=== PATIENT | male | born 1960 | race Caucasian/White ===

== ENCOUNTER 2021-08-26 07:49 | Day surgery (SDC) | payer OTHER ==
[~2021-08-26 07:49] MED LIST: ALPRAZolam 0.25 MG TAB PO PRN; ALPRAZolam 0.5 MG TAB PO PRN; ASPIRIN 325 MG TAB PO STA; ATORVASTATIN 80 MG TAB PO STA; HEPARIN SODIUM,PORCINE 10,000 UNIT in SODIUM CHLORIDE 0.9% 1,000 ML IRRIGATION PRN; HEPARIN SODIUM,PORCINE 2,500 UNIT in SODIUM CHLORIDE 0.9% 250 ML IRRIGATION PRN; NITROGLYCERIN SL TABS 0.4 MG TAB SUBLINGUAL PRN; SODIUM CHLORIDE 0.9% 1,000 ML in EMPTY BAG 1 BAG IV SCH
[2021-08-26 08:23] VITALS: TEMP 98
[2021-08-26 09:24] LABS: Basophils % (A) 0 %; Eosinophils # (A) 0.3 k/uL (0-0.7); Eosinophils % (A) 3 %; HCT 52.3 % (39.0-53.0); HGB 17.3 gm/dL (13.0-17.5); Lymphocytes # (A) 1.8 k/uL (1.0-4.8); Lymphocytes % (A) 16 %; MCHC 33.1 g/dL (31.0-37.0); MCV 96.8 fL (80.0-100.0); Mean Platelet Volume 7.3; Monocytes % (A) 9 %; Neutrophils # (A) 8.1 k/uL (1.3-7.7); Neutrophils % (A) 70 %; Platelet Count 278 k/uL (150-450); WBC 11.4 k/uL (3.8-10.6)
[2021-08-26 09:27] LABS: African American GFR (CKD) >90 (>60 ml/min/1.73 sqM); Anion Gap 10 mmol/L; Blood Urea Nitrogen 19 mg/dL (9-20); Calcium 9.4 mg/dL (8.4-10.2); Carbon Dioxide 20 mmol/L (22-30); Chloride 110 mmol/L (98-107); Glucose 122 mg/dL (74-99); Non-African American GFR(CKD) >90 (>60 ml/min/1.73 sqM); Sodium 140 mmol/L (137-145)
[2021-08-26 09:48] LABS: Potassium 4.8 mmol/L (3.5-5.1)
--- NOTE | 2021-08-26 11:46 | P.CRDCN ---
History of Present Illness History of present illness: This is Dr. Irwin dictating a consult on this patient The patient was interviewed and examined IMPRESSION / ASSESSMENT: Recurrent nonsustained ventricular tachycardia associated with dizziness and lightheadedness Multiple different morphologies No documentation of sustained VT and no loss of consciousness so far These episodes of palpitations have been occurring for a long time according to the patient Normal LV systolic function without any segmental wall motion abnormalities on 2-D echo Awaiting coronary angiography PLAN: Coronary Madonna today Maximize beta blockers Amiodarone should be only a temporary treatment Based upon the findings out recommend an EP study but he must stop amiodarone prior to that LifeVest may be considered in the interim If coronary angiography is normal, I would recommend a cardiac MRI Complete abstinence from alcohol Complete abstinence from nicotine products Complete abstinence from marijuana And a very detailed discussion with the patient and his Explained to them the d-dimer the first few beats of an impending cardiac arrest or ventricular fibrillation if they were to become sustained His ejection fraction is normal We will evaluate his coronary arteries but in my opinion he needs to stop alcohol consumption as well as marijuana and smoking Maximize beta blockers I explained the risks of continuing alcohol smoking and marijuana very clearly to the patient and his HPI For quite some time the patient has been experiencing dizzy spells However his noted that he was sitting one day any became extremely dizzy blurred vision and he looked strange The patient states that this was a severe spell but he's had these episodes before but they've been short in my He is happening for quite some time He denies any chest discomfort no loss of consciousness no angina like pain no undue shortness of breath He has good exercise capacity and can walk a mile comfortably He can climb 2 flights of stairs comfortably He does not have any family history of premature or sudden He does not have any family history with early heart disease before the age of 40 or 50 He denies any diabetes He does have hypertension He smokes tobacco He smokes marijuana He drinks heavily, alcohol ROS: No fever chills or rigors, no cough, phlegm or expectoration, no nausea, vomiting or diarrhea, no hematuria, dysuria, no musculoskeletal complaints, no strokes or seizures, no skin lesions. EXAMINATION: 90F, pulse rate in the 60s afebrile normal respirations Blood pressure 153/91 mmHg Sounds are clear no rhonchi no crackles Heart sounds S1 and S2 are normal Abdomen soft No JVD REVIEW OF LABS, ECG & MEDICAL DATA White count 11.4, hemoglobin 17, sodium 140 potassium 4.8 BUN 19 and creatinine 0.83 Past Medical History Past Medical History: Hypertension Additional Past Medical History / Comment(s): RHEUMATIC FEVER @ 11 YR. HEART MURMUR. History of Any Multi-Drug Resistant Organisms: None Reported Past Surgical History: No Surgical Hx Reported Past Anesthesia/Blood Transfusion Reactions: No Reported Reaction Additional Past Anesthesia/Blood Transfusion Reaction / Comment(s): NEVER HAS HAD ANESTHESIA Past Psychological History: No Psychological Hx Reported Smoking Status: Never smoker Past Alcohol Use History: Daily Past Drug Use History: Marijuana Additional Drug Use History / Comment(s): DAILY SMOKES Medications and Allergies Home Medications Medication Instructions Recorded Confirmed Type Cholecalciferol [Vitamin D3 (25 1 tab PO DAILY 08/24/21 08/26/21 History Mcg = 1000 Iu)] Amiodarone [Cordarone] 200 mg PO DAILY 08/26/21 08/26/21 History Aspirin 81 mg PO DAILY 08/26/21 08/26/21 History Metoprolol Succinate (ER) [Toprol 25 mg PO DAILY 08/26/21 08/26/21 History Xl] Allergies Allergy/AdvReac Type Severity Reaction Status Date / Time No Known Allergies Allergy Verified 08/26/21 08:04 Physical Exam Vitals: Vital Signs Temp Pulse Resp BP BP Pulse Ox 08/26/21 08:22 98 F 67 18 153/91 155/95 97 Intake and Output 08/25/21 08/26/21 08/26/21 22:59 06:59 14:59 Intake Total 250 Balance 250 Intake: IV 250 Other: Weight 71.4 kg Results 08/26/21 08:14 08/26/21 08:14 CBC 08/26/21 Range/Units 08:14 WBC 11.4 H (3.8-10.6) k/uL RBC 5.40 (4.30-5.90) m/uL Hgb 17.3 (13.0-17.5) gm/dL Hct 52.3 (39.0-53.0) % Plt Count 278 (150-450) k/uL Comprehensive Metabolic Panel 08/26/21 Range/Units 08:14 Sodium 140 (137-145) mmol/L Potassium 4.8 (3.5-5.1) mmol/L Chloride 110 H (98-107) mmol/L Carbon Dioxide 20 L (22-30) mmol/L BUN 19 (9-20) mg/dL Creatinine 0.83 (0.66-1.25) mg/dL Glucose 122 H (74-99) mg/dL Calcium 9.4 (8.4-10.2) mg/dL Current Medications Generic Name Dose Route Start Last Admin Trade Name Freq PRN Reason Stop Dose Admin Alprazolam 0.25 mg 08/26/21 07:26 Alprazolam 0.25 Mg Tab PO 09/25/21 07:27 Q6HR PRN Mild Anxiety Alprazolam 0.5 mg 08/26/21 07:26 Alprazolam 0.5 Mg Tab PO 09/25/21 07:27 Q6HR PRN Moderate Anxiety Sodium Chloride 1,000 ml/ IV 1,000 mls @ 71.668 mls/hr 08/26/21 07:26 08/26/21 08:23 Solution IV 09/25/21 07:27 250 mls .[id number] TRENA Administration 1 ML/KG/HR Heparin Sodium (Porcine) 10, 1,001 mls @ 999 mls/hr 08/26/21 07:26 000 unit/ Sodium Chloride IRRIGATION 08/26/21 20:00 ONCE PRN INTRA-OP Heparin Sodium (Porcine) 2,500 250.5 mls @ 250 mls/hr 08/26/21 07:26 unit/ Sodium Chloride IRRIGATION 08/26/21 20:00 ONCE PRN INTRA-OP Nitroglycerin 0.4 mg 08/26/21 07:26 Nitroglycerin Sl Tabs 0.4 Mg Tab SUBLINGUAL 09/25/21 07:27 Q5M PRN Chest Pain Intake and Output 08/25/21 08/26/21 08/26/21 22:59 06:59 14:59 Intake Total 250 Balance 250 Intake: IV 250 Other: Weight 71.4 kg Patient Weight 08/27/21 06:59 Weight 71.4 kg 08/26/21 08:14 08/26/21 08:14
[2021-08-26] MEDS ORDERED: VERAPAMIL 2.5 MG/ML 2 ML AMP ONE (12:30)
[2021-08-26] MEDS ORDERED: LIDOCAINE 1% INJ 10MG/ML (20 ML MDV) ONE (12:30)
[2021-08-26] MEDS ORDERED: HEPARIN SODIUM 1,000 UN/ML (10ML VL) ONE (12:30)
[2021-08-26] MEDS ORDERED: MIDAZOLAM 2 MG/2 ML VIAL IV ONE (12:39)
[2021-08-26] MEDS ORDERED: LIDOCAINE 1% INJ 10MG/ML (20 ML MDV) SQ ONE (12:40)
[2021-08-26] MEDS: VERAPAMIL SYRINGE (5 MG/10 ML) INTRAARTER ONE ×2 (12:41→13:01)
[2021-08-26] MEDS ORDERED: HEPARIN SODIUM 1,000 UN/ML (10ML VL) IV ONE (12:43)
[2021-08-26] MEDS ORDERED: IOPAMIDOL-370 100ML BTL INJ ONE (12:56)
--- NOTE | 2021-08-26 13:00 | ECHOF ---
Referral Reason:valves right ventricle MEASUREMENTS -------- HEIGHT: 172.7 cm WEIGHT: 71.7 kg BP: IVSd: 1.2 cm (0.6 - 1.1) LVIDd: 4.9 cm (3.9 - 5.3) LVPWd: 1.2 cm (0.6 - 1.1) EDV(Teich): 115 ml IVSs: 1.3 cm LVIDs: 3.8 cm LVPWs: 1.6 cm %IVS Thck: 7 % ESV(Teich): 62 ml EF(Teich): 46 % %FS: 23 % SV(Teich): 53 ml LALs A4C: 5.7 cm LAAs A4C: 20.5 cm LAESV A-L A4C: 63 ml LAESV MOD A4C: 62 ml LALs A2C: 5.6 cm LAAs A2C: 21.2 cm LAESV A-L A2C: 67 ml LAESV MOD A2C: 64 ml LAESV(A-L): 65 ml LAESV Index (A-L): 35.32 ml/m Ao Diam: 4.0 cm (2.0 - 3.7) AV Cusp: 1.3 cm (1.5 - 2.6) EPSS: 0.7 cm MV E Charles: 0.67 m/s MV DecT: 159 ms MV Dec [place]: 4.3 m/s MV A Charles: 0.82 m/s MV E/A Ratio: 0.82 MV PHT: 46 ms MV EF SLOPE: 53.18 mm/s (70 - 150) MV EXCURSION: 17.70 mm (> 18.000) FINDINGS -------- Sinus rhythm. This was a techncally difficult study with suboptimal views, , Lumason utilized for enhancement of im ages. The left ventricular size is normal. There is borderline concentric left ventricular hypertrophy. Overall left ventricular systolic function is low-normal with, an EF between 50 - 55 %. The right ventricle is normal in size. LA is moderately dilated 34-39 ml/m2 The right atrial size is normal. 5.0mg OF Lumason UTLIZED: 2 OR MORE WALL SEGMENTS NOT VISUALIZED. There is mild aortic regurgitation. Mild mitral regurgitation is present. Mild tricuspid regurgitation present. Right ventricular systolic pressure is normal at < 35 mmHg. There is no pulmonic regurgitation present. 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 There is no pericardial effusion. CONCLUSIONS -------- 1. The left ventricular size is normal. 2. There is borderline concentric left ventricular hypertrophy. 3. Overall left ventricular systolic function is low-normal with, an EF between 50 - 55 %. 4. The right ventricle is normal in size. 5. LA is moderately dilated 34-39 ml/m2 6. The right atrial size is normal. 7. 5.0mg OF Lumason UTLIZED: 2 OR MORE WALL SEGMENTS NOT VISUALIZED. 8. There is mild aortic regurgitation. 9. Mild mitral regurgitation is present. 10. Mild tricuspid regurgitation present. 11. 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 12. There is no pericardial effusion. [employer]ICE PRESIDENT [employer] (EX ): Olena Ross RDCS
[2021-08-26] MEDS ORDERED: SODIUM CHLORIDE 0.9% 1,000 ML IV SCH (13:15)
[2021-08-26 13:36] VITALS: RESP 18
--- NOTE | 2021-08-26 13:57 | CC ---
CARDIAC CATHETERIZATION REPORT DATE OF SERVICE: 08/26/2021 PROCEDURE: Left heart catheterization, coronary angiography and left ventriculography. PERFORMED BY: Dr. Tigist Nugent. Moderate conscious sedation time was 23 minutes. Patient was administered Versed. Oxygen saturation, hemodynamics and EKG were monitored closely. CLINICAL INFORMATION: Mr. Lacho Stephenson is a 60-year-old gentleman with a history of alcoholism and smoking who also had a history of syncope and had a cardiac workup that included an event monitor which revealed runs of nonsustained VT. He had a negative stress echo, but because of symptomatic ventricular tachycardia, he was advised EP evaluation and coronary angiography. Risks, benefits, options and rationale were explained and the patient was brought in for the procedure electively. PROCEDURE NOTE: Under local anesthesia and strict aseptic precautions, a 6-Japanese introducer was placed in the right radial artery. Using a JL3.5 and JR4 catheters I performed coronary angiography, and a pigtail catheter was used to check LV pressures. An LV-gram was performed in 30-degree SANTACRUZ projection. Patient tolerated procedure well without complications. The catheters and sheath were taken out and TR band applied as per protocol. Saturation in the fingers of the right hand was 94%. There were no complications. Results were discussed with the patient and and he will be discharged later on today and we will see him in the office on Tuesday. CARDIAC CATHETERIZATION FINDINGS: The left ventricular end-diastolic pressure was about 13 mmHg. There was no gradient across aortic valve. CORONARY ANGIOGRAPHY FINDINGS: RIGHT CORONARY ARTERY: Technically a dominant vessel, distally bifurcates into a larger PDA, a small PLV. No significant disease; only minor irregularities are noted in the right coronary artery. PDA is a larger vessel, has minor irregularities, and PLV is smaller branch, but no significant disease. LEFT MAIN CORONARY ARTERY: This is a long vessel free of significant disease that trifurcates into a good-sized LAD and a good-sized circumflex and a small ramus intermedius. No significant disease in the left main. LEFT ANTERIOR DESCENDING CORONARY ARTERY: Good-caliber vessel extends along the anterior wall, gives off septal and diagonal branches, runs all the way to the apex. No significant disease. Has minor irregularities. LEFT POSTERIOR CIRCUMFLEX CORONARY ARTERY: Nondominant vessel, good caliber, good distribution. Sizable myocardium is supplied by it. No significant disease; only minor irregularities noted. RAMUS INTERMEDIUS: Small-caliber, small-distribution vessel has minor irregularities. No significant disease. LEFT VENTRICULOGRAM: This was performed in 30-degree S[place]ACRUZ projection and revealed left ventricle is of normal size with good systolic function, ejection fraction 55%. No mitral regurgitation. FINAL IMPRESSION: This patient has a right-dominant system, normal filling pressures, no gradient. Normal ejection fraction of 55% without mitral regurgitation. He has a right-dominant system. No significant obstructive CAD. RECOMMENDATIONS: Findings were discussed with the patient and . He will be discharged today and we will do a cardiac to further work up for ventricular tachycardia and also EP evaluation. Patient will be discharged today and we will see him on Tuesday. MMODL / IJN: [id number] /
[2021-08-26 16:50] VITALS: BP 140/84; PULSE 52
== END 2021-08-26 16:56 | disposition home or self-care (01) ==
LOC: CATHCVL 07:49
PROVIDERS: ATTEND Internal Medicine Interventional Cardiology
DX: I47.2 Ventricular tachycardia (principal); I08.3 Combined rheumatic disorders of mitral, aortic and tricuspid valves; I10 Essential (primary) hypertension; I42.9 Cardiomyopathy, unspecified; E78.00 Pure hypercholesterolemia, unspecified; Z20.822 Contact with and (suspected) exposure to COVID-19; F10.20 Alcohol dependence, uncomplicated; F17.210 Nicotine dependence, cigarettes, uncomplicated; Z79.82 Long term (current) use of aspirin; Z79.899 Other long term (current) drug therapy
CPT/HCPCS: 93306; 93458; 80048; 85025; 87635; C1894; J2250; J2001; J1644; Q9950; Q9967

== ENCOUNTER 2025-01-09 08:23 | Day surgery (SDC) | payer MEDICARE, OTHER ==
[~2025-01-09 08:23] MED LIST changes: -ALPRAZolam 0.25 MG TAB PO PRN; -ALPRAZolam 0.5 MG TAB PO PRN; -ASPIRIN 325 MG TAB PO STA; -ATORVASTATIN 80 MG TAB PO STA; -HEPARIN SODIUM,PORCINE 10,000 UNIT in SODIUM CHLORIDE 0.9% 1,000 ML IRRIGATION PRN; -HEPARIN SODIUM,PORCINE 2,500 UNIT in SODIUM CHLORIDE 0.9% 250 ML IRRIGATION PRN; +LIDOCAINE 1% (10MG/ML) FOR IV START INTRADERMA PRN; -NITROGLYCERIN SL TABS 0.4 MG TAB SUBLINGUAL PRN; -SODIUM CHLORIDE 0.9% 1,000 ML in EMPTY BAG 1 BAG IV SCH
[2025-01-09] MEDS: IV FLUID CONTINUATION 1,000 ML IV ONE (08:37)
[2025-01-09 08:39] VITALS: TEMP 97.1
[2025-01-09 08:49] LABS: Glucose,Whole Blood 98 mg/dL (70-110)
[2025-01-09] MEDS: LACTATED RINGERS 1,000 ML IV SCH (08:49)
[2025-01-09] MEDS ORDERED: PROPOFOL 10 MG/ML 20 ML VIAL IV ONE (08:54)
--- NOTE | 2025-01-09 09:20 | P.PCN ---
Date of Procedure: 01/09/25 Procedure(s) Performed: BRIEF HISTORY: Patient is a 64-year-old pleasant white male scheduled for an elective colonoscopy as a part of screening for colon cancer. PROCEDURE PERFORMED: Colonoscopy with snare polypectomy. PREOPERATIVE DIAGNOSIS: Screening for colon cancer. IV sedation per Anesthesia. PROCEDURE: After informed consent was obtained, the patient, was brought into the endoscopy unit. IV sedation was administered by Anesthesia under continuous monitoring. Digital rectal examination was normal. Initially the Olympus CF-160 flexible video colonoscope was then inserted in the rectum, gradually advanced into the cecum without any difficulty. Careful examination was performed as the scope was gradually being withdrawn. Ileocecal valve and the appendiceal orifice were visualized and appeared normal. Prep was excellent. Mucosa of the cecum, ascending colon, transverse colon, descending colon, appeared normal. The sigmoid colon there were 3 polyps all measuring between 5 and 6 mm in size removed by cold snare polypectomy. In the proximal rectum at 12 cm from the anal verge there was a 2.5 cm broad-based polyp removed by snare polypectomy and there were 3 areas of small polyps measuring 5 mm in size removed by snare polypectomy. Rest of the sigmoid colon, and rectum appeared normal. Retroflexion was performed in the rectum and no lesions were seen. The patient tolerated the procedure well. IMPRESSION: 3 polyps in the sigmoid colon measuring between 5 and 6 mm in size status post polypectomy 2.5 cm and 5 mm x 3 proximal rectal polyp status post polypectomy RECOMMENDATIONS: Findings of this examination were discussed with the patient as well as the family.. Was advised to follow-up with the biopsy results. If the biopsy reveals adenoma he can have repeat colonoscopy 3 years.
[2025-01-09] MEDS: KETOROLAC 15 MG/ML 1 ML VIAL IVP STA (09:54)
[2025-01-09 09:57] VITALS: RESP 14
[2025-01-09 10:01] VITALS: BP 129/82; PULSE 72
== END 2025-01-09 11:02 | disposition home or self-care (01) ==
LOC: ORWHC2ENDO 08:23
PROVIDERS: ATTEND Internal Medicine Gastroenterology
DX: Z12.11 Encounter for screening for malignant neoplasm of colon (principal); K63.5 Polyp of colon; K62.1 Rectal polyp
CPT/HCPCS: 45385; J1885; J2704; 88305